=== PATIENT | male | born 2000 | race Caucasian/White ===

== ENCOUNTER 2022-03-28 12:05 | Outpatient (REF) | payer BC, SELFPAY ==
[2022-03-30 12:34] LABS: COVID-19 RT-PCR UVMMC Result Negative (Negative)
== END 2022-03-28 12:06 | disposition home or self-care (01) ==
LOC: LBN 12:05
PROVIDERS: Visit Provider Physician Assistant Medical
DX: J02.9 Acute pharyngitis, unspecified (principal); Z20.822 Contact with and (suspected) exposure to COVID-19
CPT/HCPCS: U0003; 87070

== ENCOUNTER 2023-01-08 16:55 | Emergency (ER) | payer OTHER, SELFPAY ==
[2023-01-08 16:58] VITALS: BP 148/80; PULSE 101; RESP 16; TEMP 37.6; O2SAT 100
--- NOTE | 2023-01-08 17:48 | ED.GENADUL_ITS ---
Discharge Plan Disposition Patient Disposition: Home Discharge Details Clinical Impression: Laceration of thumb, left Primary Care Provider: None,None ED Provider: Irais Skinner Discharge Instructions Instructions: Laceration (ED) Additional Instructions: Keep the dressing on for the next 3 days. The glue will peel off on its own as time goes on. Keep the wound dressed at work and keep your hand clean and dry. Discharge Data Discharge Date/Time-TO BE ENTERED AT DEPARTURE: 01/08/23 18:39 Medical Decision Making Patient was advised to keep the area clean and dry for 3 days and then use a Band-Aid to protect it. Adhesive will peel off on its own. He will return for red streaks, worsening pain, fever of 100.4 or above, any other concerns. HPI General Date/Time Provider Initiated Documentation: 01/08/23 17:48 . HPI Narrative: This 22-year-old male patient presents with a chief complaint of left thumb lac sustained with a knife at his job at a local [employer] just prior to arrival. He did rinse same and then apply a compression dressing. There is no distal numbness but he does have moderate sharp pain in the area when it is touched. The patient's tetanus shot is up-to-date. Related Data Allergies Allergy/AdvReac Type Severity Reaction Status Date / Time No Known Drug Allergies Allergy Unverified 01/08/23 18:18 General Stated Complaint: Laceration BENJA: 4 Review of Systems Constitutional Constitutional: Denies weakness Musculoskeletal Musculoskeletal: Denies numbness Comments: The patient has a 1-1/2 cm thumb lack left distal anterior surface. Integumentary/Breasts Comments: Thumb skin lac as noted above Neurologic Neurologic: Denies numbness and Denies weakness PFSH All Active Problems (Updated 01/08/23 @ 18:15 by Irais Skinner MD) Laceration of thumb, left (Acute) Social History Smoking/Tobacco Use Status: Never Smoking risk assessment performed?: Yes Do you feel safe at home: Yes Exam Narrative Exam Narrative: Patient is in no acute distress and is nontoxic-appearing. Skin [employer] warm and dry, conjunctiva normal, mouth with moist mucous membranes, neck supple, no respiratory distress, left distal thumb anterior surface with 1.8 cm laceration just into the fat, bleeding controlled, full range of motion and sensation intact distally. Const General: cooperative, healthy appearing and no acute distress Course Vital Signs Vital signs: Vital Signs Temperature 37.6 C H 01/08/23 16:58 Pulse 101 H 01/08/23 16:58 Respiratory Rate 16 01/08/23 16:58 Blood Pressure 148/80 H 01/08/23 16:58 Pulse Oximetry 100 01/08/23 16:58 Temperature 37.6 C H 01/08/23 16:58 Temperature Source Oral 01/08/23 16:58 Pulse 101 H 01/08/23 16:58 Respiratory Rate 16 01/08/23 16:58 Respiratory Effort Normal 01/08/23 17:16 Blood Pressure 148/80 H 01/08/23 16:58 Blood Pressure Position Sitting 01/08/23 16:58 Pulse Oximetry 100 01/08/23 16:58 Oxygen Delivery Method Room Air 01/08/23 16:58 Oxygen Flow Rate 0 01/08/23 16:58 Pain Level 3 01/08/23 16:58 Procedures Other Description: Laceration repair: Left distal thumb 1.5 cm lac Betadine cleansed, bleeding controlled. Skin adhesive sieve used in typical fashion with good result. Tubex sterile dressing applied.
== END 2023-01-08 18:39 | disposition home or self-care (01) ==
PROVIDERS: Emergency Provider Emergency Medicine
DX: S61.012A Laceration without foreign body of left thumb without damage to nail, initial encounter (principal); W26.0XXA Contact with knife, initial encounter; Y99.0 Civilian activity done for income or pay
CPT/HCPCS: 12001

== ENCOUNTER 2023-09-15 11:23 | Emergency (ER) | payer OTHER, SELFPAY ==
[2023-09-15 11:53] VITALS: BP 142/62; PULSE 65; RESP 16; TEMP 36.8; O2SAT 100
--- NOTE | 2023-09-15 12:20 | ED.GENADUL_ITS ---
Discharge Plan Disposition Patient Disposition: Home Discharge Details Clinical Impression: Burn of left arm Primary Care Provider: Unknown,Unknown ED Provider: Jaci Wilks Home Meds and New Rx's Prescriptions: No Action No Known Home Meds Discharge Instructions Instructions: Second-Degree Burn (ED) Additional Instructions: Apply Silvadene or bacitracin twice a day. Take [id number] medications as needed for pain and return to the emergency department for any signs of infection Discharge Data Discharge Date/Time-TO BE ENTERED AT DEPARTURE: 09/15/23 12:41 Discharge Physician: Jaci Wilks Medical Decision Making Patient is a healthy 23-year-old [id number] male who burned his left wrist with hot soup just prior to arrival. He has a partial-thickness burn that is noncircumferential of the volar aspect of the left wrist. There are 3 small intact blisters. There is no evidence of compartment syndrome or third-degree burn. The burn comprises 1 to 2% of his total body surface area. He is neurovascularly intact distal to the burn site. My plan is to discharge him home with Silvadene cream and bcjb-zij-iduvkhu analgesics. I will advise him on signs and symptoms of wound infection and advised him to return for any new or worrisome symptoms such as numbness tingling increasing redness worsening pain or any concerns. We will update his tetanus immunization and dressed his wounds prior to discharge. Differential Diagnosis Differential Diagnosis: Partial-thickness burn of the volar aspect of the left wrist, cellulitis Medical Records Medical records reviewed: Yes I reviewed the patient's medical records. HPI General Mode of arrival: ambulatory . Date/Time Provider Initiated Documentation: 09/15/23 12:17 . Limitations to Documentation: no limitations . Information obtained by: patient . HPI Narrative: The patient is a healthy 23-year-old male who is right-handed who burned his l eft wrist on hot soup just prior to arrival. He is complaining of a constant burning pain. It does not radiate. It is associated with redness. He has applied bacitracin to the area with minimal relief. He denies any history of diabetes or immune compromise. He denies any numbness tingling or loss of function distal to the injury. The pain is constant burning nonradiating and moderate to severe in severity. He does not know the date of his last tetanus shot. He has no known allergies. The pain is aggravated by palpation. He has no significant past medical history. Related Data Home Medications Medication Instructions Recorded Confirmed Unknown [No Known Home Meds] 09/15/23 09/15/23 Allergies Allergy/AdvReac Type Severity Reaction Status Date / Time No Known Drug Allergies Allergy Unverified 09/15/23 11:55 General Stated Complaint: Burn BENJA: 4 Review of Systems Narrative: see hpi PFSH All Active Problems (Updated 09/15/23 @ 12:22 by Jaci Wilks MD) Burn of left arm (Acute) Social History Smoking/Tobacco Use Status: Never Smoking risk assessment performed?: Yes Alcohol Intake: current Alcohol Intake frequency: 0-2 drinks per day Drug use: Daily Substance use type: marijuana Housing: house Do you feel safe at home: Yes Do you feel safe in your relationship?: Yes Exam Const General: cooperative, healthy appearing, comfortable, no acute distress, well developed, well groomed and well hydrated Nutritional Appearance: average body habitus and well nourished Orientation: alert, awake and oriented x3 HENMT Head: normal to inspection, normocephalic and atraumatic Ears: hearing grossly normal bilaterally and external ears normal General nose exam: external nose normal, nares normal and no nasal discharge Face and sinus: normal facial exam and face symmetric Mouth: lip normal, moist mucous membranes and other (Normal phonation. The patient is handling secretions.) Eyes General: appearance normal, both eyes and all related structures Eyelids: eyelids normal Conjunctivae: conjunctivae normal Sclera: sclerae normal Cornea: corneas normal EOM: EOM intact bilaterally and No nystagmus Neck Neck: normal visual inspection, full ROM, no lymphadenopathy, no meningeal signs, trachea midline and supple Chest Chest: normal inspection of the chest Resp Effort & Inspection: normal respiratory effort, able to speak in complete sentences, no audible wheezes, no nasal flaring, no respiratory distress, no retractions, no stridor, not tachypneic, no use of accessory muscles and other (Normal inspiratory to expiratory ratio.) Skin General skin exam: erythema (L wrist, tender, 4x2.5cm, 3 small intact blisteres) and other (partial-thickness noncircumferential burn to the volar aspect of L wrist) Neuro General: patient alert, patient awake, patient oriented x3, moves all extremities, no meningeal signs, no focal motor deficits and CN's II-XI intact bilaterally Cranial Nerves: CN's II-XI intact bilaterally, PERRL, accommodation normal, EOM intact bilaterally, no nystagmus, facial strength normal, tongue midline, hearing normal and no nystagmus Cognition: normal cognition Speech: speech normal Gait: normal gait Motor: muscle tone normal throughout and strength 5/5 throughout Sensory Exam: no sensory deficits noted Extrem General: full ROM, capillary refill normal and no clubbing, cyanosis or edema Other: Please see above. He is neurovascularly intact distal to the burn. No evidence of compartment syndrome. Tendons are intact. Cap refills less than 2 seconds. The remainder of his extremities are unremarkable. Psych Appearance: grossly normal Affect: normal affect Attitude: cooperative Thought Process: normal Thought Content: normal Insight: insight good Judgment: judgment good Other: The patient appears to have capacity make medical decisions. Course The patient was given a tetanus shot and his burn was dressed with Silvadene by the nursing staff. The patient was advised to use Silvadene cream twice a day and to use bacitracin as needed once he used up the Silvadene cream. He was advised to take [id number] analgesics for pain. He was educated on signs and symptoms of wound infection. And signs of compartment syndrome. He was advised to return to the emergency department for any new or worrisome symptoms. The patient voiced understanding agreement with the discharge plan. All his questions and concerns were addressed prior to discharge Vital Signs Vital signs: Vital Signs Temperature 36.8 C 09/15/23 11:53 Pulse 65 09/15/23 11:53 Respiratory Rate 16 09/15/23 11:53 Blood Pressure 142/62 H 09/15/23 11:53 Pulse Oximetry 100 09/15/23 11:53 Temperature 36.8 C 09/15/23 11:53 Temperature Source Tympanic 09/15/23 11:53 Pulse 65 09/15/23 11:53 Respiratory Rate 16 09/15/23 11:53 Respiratory Effort Normal 09/15/23 11:55 Blood Pressure 142/62 H 09/15/23 11:53 Pulse Oximetry 100 09/15/23 11:53 Pain Level 7 12/20/23 12:18 PAWSS Have you Been Recently Intoxicated or Drunk Within the Last 30 days?: No Have you Ever Experienced Previous Episodes of Alcohol Withdrawal?: No Have you ever Experienced Withdrawal Seizures?: No Have you ever Experienced Delirium Tremens(DT)s?: No Have you ever undergone Alcohol Rehabilitation Treatment (i.e, inpt ot outpatient treatment programs)?: No Have you ever Experienced Blackouts?: No Have you ever Combined Alcohol with other Downers within the last 90 days?: No Have you ever Combined Alcohol with any other Substance of Abuse during the last 90 days?: No Result: 0
[2023-09-15] MEDS: Silver sulfaDIAZINE 1% 25 GM TUBE TP (12:33)
[2023-09-15 12:40] VITALS: BP 138/78; PULSE 88; RESP 16; TEMP 36.5; O2SAT 98
== END 2023-09-15 12:41 | disposition home or self-care (01) ==
PROVIDERS: Emergency Provider Emergency Medicine Emergency Medical Services
DX: T23.272A Burn of second degree of left wrist, initial encounter; X10.1XXA Contact with hot food, initial encounter
CPT/HCPCS: 16020; 90471; 99284; 99285